=== PATIENT | male | born 1940 | race Caucasian/White ===

== ENCOUNTER 2020-02-12 12:30 | Emergency (ER) | payer OTHER, SELFPAY ==
[2020-02-12 12:54] VITALS: BP 178/78; PULSE 55; RESP 15; TEMP 36.9; O2SAT 96; BMI 31.5
--- NOTE | 2020-02-12 13:01 | DI.RAD.S_ITS ---
PROCEDURE: XR SHOULDER LT MIN 2V INDICATIONS: 6ft fall off ladder onto left arm TECHNIQUE: 2 views of the shoulder were acquired. COMPARISON: None. FINDINGS: Bones: Fracture of the distal clavicle is noted. Soft tissues: No suspicious soft tissue calcifications. IMPRESSION: Distal clavicle fracture. Dictated by: Adilia Funk MD, PhD on 02/12/2020 at 13:38 Approved by: Adilia Funk MD, PhD on 02/12/2020 at 13:39
[2020-02-12 16:12] VITALS: BP 146/71; PULSE 56; RESP 16; O2SAT 97
--- NOTE | 2020-02-12 16:21 | DI.RAD.S_ITS ---
PROCEDURE: XR CLAVICLE LT INDICATIONS: clavicle fx TECHNIQUE: 2 views of the clavicle were acquired. COMPARISON: [facility], CR, XR SHOULDER LT MIN 2V, 02/12/2020, 13:16. FINDINGS: Bones: There is a comminuted, moderately displaced fracture seen of the distal left clavicle. The distal left clavicle is high-riding. No additional fractures are seen. The visualized ribs are intact. No suspicious lytic or blastic lesions are seen. Age-appropriate bony degenerative changes are seen. Soft tissues: No suspicious soft tissue calcifications. IMPRESSION: Comminuted, moderately displaced distal clavicle fracture, with distal clavicle high-riding. Dictated by: Jeff Eng M.D. on 02/12/2020 at 16:05 Approved by: Jeff Eng M.D. on 02/12/2020 at 16:06
[2020-02-12] MEDS: HYDROCODONE/ACET 5/325 TABLET 1 TAB PO (17:29)
[2020-02-12 17:49] VITALS: BP 119/71; PULSE 63; RESP 14; O2SAT 99
--- NOTE | 2020-02-12 18:09 | ED.UPPEXIN ---
HPI - Extremity Injury (Upper) <SYLVIA Clay - Last Filed: 02/12/20 18:40> General Chief Complaint: Extremity Injury, Upper Stated Complaint: Fall today hurt right shoulder Time Seen by Provider: 02/12/20 16:08 Source: patient Mode of arrival: Ambulatory Limitations: no limitations History of Present Illness HPI narrative: The patient is a 79-year-old male nonsmoker presents with a chief complaint of left shoulder pain after a fall earlier today while cleaning the gutters. He was on a ladder, states he was approximately 6 ft high when the ladder collapsed, folded in any fell landing directly on his shoulder. He denies loss of consciousness. He denies any neck or back pain. He states he has an isolated shoulder injury and does not want any further follow-up. He is concerned about dislocation. He took acetaminophen prior to arrival. This occurred approximately 10:00 a.m.. Modified trauma is considered for this patient, but not activated as he complains of an isolated injury, is not taking blood thinners, declines any imaging other than his shoulder. Related Data Previous Rx's Medication Instructions Recorded hydrocodone-acetaminophen [[place]] 1 tab PO Q4-6H PRN #10 tab 02/12/20 Allergies Allergy/AdvReac Type Severity Reaction Status Date / Time No Known Drug Allergies Allergy Verified 02/12/20 12:54 Review of Systems <SYLVIA Clay - Last Filed: 02/12/20 18:40> Review of Systems Narrative: GENERAL: Denies chills, fatigue, malaise, fever, sweats. HEENT: Denies sinus pain, ear pain, sore throat, difficulty swallowing, dizziness. RESPIRATORY: Denies dyspnea, cough, wheezing, hemoptysis, sputum. CARDIOVASCULAR: Denies chest pain, palpitations, orthopnea, edema, GASTROINTESTINAL: Denies nausea, vomiting, abdominal pain, diarrhea, constipation, melena. : Denies dysuria, frequency, incontinence, hematuria, urinary retention. MUSCULOSKELETAL: See HPI SKIN: Denies rash, skin lesions, or other NEUROLOGIC: Denies weakness, headache, numbness, change in speech, confusion, seizures, incoordination. PSYCHIATRIC: No concerning psychosocial issues. 12 point review of systems is negative except for those stated above Patient History <SYLVIA Clay - Last Filed: 02/12/20 18:40> Social History Smoking Status: Unknown if ever smoked Smoking Status: Unknown if ever smoked alcohol intake frequency: holidays/special occasions only Substance Use Type: does not use Exam <Mariann FlorentinoSYLVIA lane - Last Filed: 02/12/20 18:40> Narrative Exam Narrative: GENERAL: This is a well-nourished, well-developed patient, in no acute distress. HEAD: Atraumatic. Normocephalic. No temporal or scalp tenderness. EYES: Pupils equal round and reactive. Extraocular motions intact. No scleral icterus. No injection or drainage. ENT: Nose without bleeding, purulent drainage or septal hematoma. Wearing a mask Airway patent. NECK: Trachea midline. No JVD or lymphadenopathy. Supple, nontender, no meningeal signs. CARDIOVASCULAR: Regular rate and rhythm RESPIRATORY: Clear to auscultation. Breath sounds equal bilaterally. No wheezes, rales, or rhonchi. No cough. No increased respiratory effort. No accessory muscle use GASTROINTESTINAL: Abdomen soft, non-tender, nondistended. No hepato-splenomegaly, or palpable masses. No guarding. Active bowel sounds all 4 quadrants. EXTREMITIES: Pain over palpation of left clavicle. Positive left radial pulse. 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 Cap refill less than 2 seconds all fingers left hand. BACK: Nontender without deformity or crepitance. No flank tenderness. No pain to CT or L-spine palpation. No palpable step-offs or deformities. NEURO: AOx3. Interactive. Age appropriate. Stable gait. No gross cranial nerve deficit. SKIN: No rash or erythema on visible Initial Vital Signs Initial Vital Signs: Vital Signs Temperature 98.5 F 02/12/20 12:54 Pulse Rate 55 L 02/12/20 12:54 Respiratory Rate 15 02/12/20 12:54 Blood Pressure 178/78 H 02/12/20 12:54 Pulse Oximetry 96 02/12/20 12:54 <Elvia Miranda DO - Last Filed: 02/13/20 07:24> Initial Vital Signs Initial Vital Signs: Vital Signs Temperature 98.5 F 02/12/20 12:54 Pulse Rate 55 L 02/12/20 12:54 Respiratory Rate 15 02/12/20 12:54 Blood Pressure 178/78 H 02/12/20 12:54 Pulse Oximetry 96 02/12/20 12:54 Procedures <SYLVIA Clay - Last Filed: 02/12/20 18:40> Orthopedic Splinting/Casting Injury #1: Side: right Upper Extremity Injury Location: shoulder Upper Extremity Immobilizer: sling/shoulder immobilizer Post splinting neuro exam: intact Post splinting vascular exam: intact Placed by: Nursing Scores <SYLVIA Clay - Last Filed: 02/12/20 18:40> GCS Monet coma scale eye opening: Spontaneous Monet coma scale verbal response: Orientated Dudley coma scale motor response: Obey commands Monet coma scale total score: 15 Nexus Score for C-Spine Focal Neurologic deficit present: No Midline spinal tenderness present: No Altered level of conciousness present: No Intoxication present: No Distracting Injury Present: No Nexus Criteria for C-spine: 0 Course <SYLVIA Clay - Last Filed: 02/12/20 18:40> Orders Ordered: Discontinued Medications Hydrocodone Bitart/Acetaminophen (Hydrocodone/Acet 5/325 Tablet) 1 tab PO NOW ONE Stop: 02/12/20 17:03 Last Admin: 02/12/20 17:29 Dose: 1 tab Documented by: KELY Vital Signs Vital signs: Vital Signs - 8 hr 02/12/20 12:54 02/12/20 16:12 02/12/20 17:49 Temperature 98.5 F Pulse Rate 55 L 56 L 63 Respiratory Rate 15 16 14 Blood Pressure 178/78 H 146/71 H 119/71 Pulse Oximetry 96 97 99 <Elvia Miranda DO - Last Filed: 02/13/20 07:24> Orders Ordered: Discontinued Medications Hydrocodone Bitart/Acetaminophen (Hydrocodone/Acet 5/325 Tablet) 1 tab PO NOW ONE Stop: 02/12/20 17:03 Last Admin: 02/12/20 17:29 Dose: 1 tab Documented by: KELY Vital Signs Vital signs: Vital Signs - 8 hr 02/12/20 12:54 02/12/20 16:12 02/12/20 17:49 Temperature 98.5 F Pulse Rate 55 L 56 L 63 Respiratory Rate 15 16 14 Blood Pressure 178/78 H 146/71 H 119/71 Pulse Oximetry 96 97 99 MDM - Extremity Injury (Upper) <SYLVIA Clay - Last Filed: 02/12/20 18:40> [facility] Narrative Medical decision making narrative: The patient is a 71-year-old male who presents with a chief complaint of right shoulder pain after falling off a ladder onto it. He denies any his head any neck or back pain. Denies any numbness or tingling or incontinence. He repeatedly declines any imaging other than his shoulder. He was found to have a clavicle fracture on shoulder x-ray, so focused clavicle films were taken per Dr Miranda. X-rays were viewed with Dr Miranda and the patient was placed in a sling. He is neurovascularly intact with no tenting of the skin. Encouraged follow-up with primary care provider and orthopedist. Discussed at length ice, return precautions of today in skin or decreased circulation. Patient repeatedly declined further imaging. [place] given for pain. Patient has no questions or concerns upon discharge and states understanding return precautions as well as follow-up care. Discharge Plan Departure Patient Disposition: Home Clinical Impression: Fracture of clavicle Qualifiers: Encounter type: initial encounter Clavicle location: lateral end Fracture type: closed Fracture alignment: displaced Laterality: right Qualified Code(s): S42.031A - Displaced fracture of lateral end of right clavicle, initial encounter for closed fracture Accidental fall from ladder Qualifiers: Encounter type: initial encounter Qualified Code(s): W11.XXXA - Fall on and from ladder, initial encounter Instructions: How to Use a Sling, DI for Clavicle Fracture-Adult Activity Restrictions/Additional Instructions: Thank you for trusting us with your care today As discussed, you have a fractured clavicle or collarbone. Please follow-up with primary care provider in [place]. They will likely want you to see an orthopedist and I have given you contact information to [facility] Please use ice, [id number] medications as needed and able. I have also given you a prescription of hydrocodone with acetaminophen. [facility] Be careful taking x-ray acetaminophen with this so that you do not take more than 3 g per day I have given you a prescription of a narcotic for pain. Be aware that this can be constipating and sedating. I encouraged taking with a stool softener, pushing fluids and fiber. Do not take and drive, operate heavy machinery, etc. Do not combine it with any other sedating substances such as alcohol. The combination of narcotics and alcohol and/or other sedatives can be lethal. Please come back to the emergency department for any acute concerns such as decreased circulation to your hand. You have declined further imaging in the emergency department today, so feel free to come back to the ER for any acute concerns Prescriptions: New hydrocodone-acetaminophen [[place]] 5-325 mg tablet 1 tab PO Q4-6H PRN (Reason: pain) Qty: 10 RF: 0 <Elvia Miranda DO - Last Filed: 02/13/20 07:24> Cosign ED Attending [place] Attestation: I was immediately available in the department for consultation. Documentation has been reviewed. I agree with assessment and plan.
== END 2020-02-12 17:51 | disposition home or self-care (01) ==
PROVIDERS: Emergency Provider Nurse Practitioner Family
DX: S42.031A Displaced fracture of lateral end of right clavicle, initial encounter for closed fracture (principal); W11.XXXA Fall on and from ladder, initial encounter
CPT/HCPCS: 73000; 73030; 99281; 99283

== ENCOUNTER → 2020-02-18 09:36 | Outpatient (CLI) | payer OTHER, SELFPAY ==
[2020-02-18 11:14] LABS: COVID19 -Nasal RAPID Negative (Negative)
== END ==
PROVIDERS: Visit Provider Student in an Organized Health Care Education/Training Program
DX: Z11.59 Encounter for screening for other viral diseases (principal)
CPT/HCPCS: 87635

== ENCOUNTER 2020-02-20 06:27 | Day surgery (SDC) | payer OTHER, SELFPAY ==
[2020-02-20] VITALS (11 sets, daily range): BP systolic 131–174; BP diastolic 75–92; PULSE 67–94; RESP 11–20; TEMP 35.8–36.2; O2SAT 87–97; BMI 33.3
--- NOTE | 2020-02-20 | DI.RAD.S_ITS ---
PROCEDURE: XR CLAVICLE LT INDICATIONS: Post op clavicle orif TECHNIQUE: 2 views of the clavicle were acquired. COMPARISON: [facility], CR, XR SHOULDER LT MIN 2V, 02/12/2020, 13:16. [facility], CR, XR CLAVICLE LT, 02/12/2020, 16:30. FINDINGS: Bones: On this postoperative study, plate and screw fixation is seen of the distal left clavicle. A suture button is seen across the cortical clavicular interface. There is improved anatomic alignment. Age-appropriate bony degenerative changes are seen. Soft tissues: Overlying soft tissue postoperative changes are seen. IMPRESSION: Normal postoperative examination. Dictated by: Jeff Eng M.D. on 02/20/2020 at 8:55 Approved by: Jeff Eng M.D. on 02/20/2020 at 8:56
[2020-02-20] MEDS: LACTATED RINGERS 1,000 ML 42 ML IV ×2 (07:05→10:01)
--- NOTE | 2020-02-20 07:08 | SUR.OPER ---
Beach chair on padded OR bed. Head on gel donut secured with tape over gauze. Non-operative arm secured <90 degrees abduction on padded arm board. Pillow under knees. Safety belt at thigh. Cloth tape over blanket over lower legs.
--- NOTE | 2020-02-20 07:27 | PM.PREOP ---
Pre-operative Note COVID-19 COVID-19 status: Negative Result date/Date tested (Pos, Neg/Pending): 02/18/20 Interval Note History & Physical reviewed/Exam performed by Physician: Yes Changes to H&P: No
[2020-02-20] MEDS: MIDAZOLAM 2 MG/2 ML VIAL IV (07:47)
[2020-02-20] MEDS: CEFAZOLIN 2 GM/100 ML FROZ.PIGGY IV (07:55)
--- NOTE | 2020-02-20 08:02 | SUR.PREOP ---
Block start time [0747] . Monitoring initiated and maintained throughout procedure. Oxygen and medications given per anesthesiologist instructions. Patient remained stable throughout procedure, no adverse reactions noted. Block end time [0754]. pt remained stable throughout procedure. pt alert and talking to RN at bedside. Pt transferred into the OR after completion of block in stable condition, vss.
[2020-02-20] MEDS: BUPIVACAINE 0.25% W/ EPI (PF) 10 ML VIAL 20 ML INJ (08:36)
[2020-02-20] MEDS: ACETAMINOPHEN IV 1,000 MG/100 ML VIAL 400 MG IV (08:38)
--- NOTE | 2020-02-20 09:37 | PM.OP.1 ---
Operative Date/Time/Diagnoses Date of procedure: 02/20/20 Time of procedure: 09:37 Pre-op diagnosis: Left distal clavicle fracture with disruption of the coracoclavicular ligaments Post-op diagnosis: same Procedure & Clinicians Procedure: 1. Open reduction internal fixation of left distal clavicle fracture (72640) 2. Repair of the coracoclavicular ligaments (57001) Same procedure as scheduled: Yes Indications: The patient is a 79-year-old gentleman who was injured when the ladder he was standing on gave way and he fell. He sustained a left distal clavicle fracture with disruption of the coracoclavicular ligaments. He has taken to the operating room for open reduction internal fixation and repair of the ligaments after discussion the risks benefits and alternatives. Risks discussed included but were not limited to: Failure to improve, stiffness, infection, nerve damage, potential need for later removal of the plate, deep venous thrombosis, pulmonary embolism, stroke, myocardial infarction, permanent paralysis and . Surgeon: Rome Shields Haulpak Driver: Rosita Hernández Click Yes if Unassisted: No Anesthesia Type: General, Peripheral nerve block and Local Operative Notes Findings: Oblique distal clavicle fracture with complete rupture of the coracoclavicular ligaments. Closure Type: primary Specimen(s): none sent Prosthetic devices, grafts, tissues, transplants, or devices: Implants used in this procedure were manufactured by the [employer]. The included a 5 hole left distal clavicle plate with 1 nonlocking and 3 locking 2.7 mm screws in the distal fragment and 3 3.5 mm nonlocking screws in the proximal fragment. A syndesmosis ?Tight Rope? was used to repair the coracoclavicular ligaments. Applied: implant(s) Estimated Blood Loss (mL): 100 Blood products transfused: none Procedure in detail: The patient was seen in the preoperative area where he identified the left shoulder as the operative site and this was marked with my initials. He received preoperative antibiotics and was taken to the operating room and placed on the operating room table in the supine position after undergoing an interscalene block for postoperative pain control. The patient underwent a general anesthetic and then was repositioned in the ?beach chair? position. A towel roll was placed medial to the scapula to protract it. The left arm was prepared from the fingertips to the neck with ChloraPrep in the usual fashion. The arm was draped through sterile drapes. The arm was draped free. The distal clavicle was approached through an approximately 10 cm incision on the anterior side of the clavicle. Subcutaneous flaps were raised. The fascia muscular sleeve was elevated off the clavicle and the deltoid was taken off anteriorly to allow access to the coracoid. The coracoid was palpated and the base of the coracoid defined by blunt dissection with a hemostat beneath it. A preliminary reduction was obtained and held with a 0.062 inch K-wire. The appropriate plate was selected and applied to the top of the clavicle. A distal nonlocking screw was placed and 1 proximal screw was placed. At this point the ?Tight Rope? device was placed through the plate. The ?dog bone? fixation device was deployed beneath the neck of the clavicle and the sutures on this tightened which reapproximated the clavicle to the appropriate relationship to the coracoid. The sutures were then tied to finalize fixation. An additional 3 locking screws were placed in the distal fragment to finalize fixation there. An additional 2 nonlocking screws were placed medially. I palpated beneath the distal clavicle with a [place] elevator to confirm that the screws had not penetrated too deeply. The wound was then copiously irrigated. The fascia muscular sleeve was then reapproximated using interrupted 0 Vicryl. The subcutaneous layer was closed with 3-0 Vicryl. The subcutaneous flaps were injected with a total of 10 mL of 0.25% Marcaine with epinephrine for postoperative pain control. The skin was closed with a running 4-0 Monocryl and Steri-Strips. An Aquacel Ag dressing was then applied. The patient was allowed to awaken from anesthesia and was taken to the recovery room in good condition having tolerated the procedure well. Complications: none Post-operative Condition: stable Disposition: PACU Plan for aftercare: The patient will be discharged home today. He will be allowed to use his hand below shoulder level in front of his body lifting no more than 1 lb for 1 month. He will then be allowed unrestricted motion of his arm in physical therapy. Healing of the fracture will be followed on radiographs. He will be discharged with a prescription for oxycodone for pain control.
--- NOTE | 2020-02-20 11:01 | SUR.PHASEII ---
All instructions and discharge orders reviewed with and patient. RX provided for oxycodone and instructed patient that Dr Shields wanted patient to take Baby ASA for two weeks. Patient denies pain at this time and is in no respiratory distress. All belongings returned to patient.
== END 2020-02-20 10:58 | disposition home or self-care (01) ==
PROVIDERS: PCP Internal Medicine; Referring Provider Orthopaedic Surgery; Visit Provider Orthopaedic Surgery
PROC: 0PSB04Z Reposition Left Clavicle with Internal Fixation Device, Open Approach (ICD-10-PCS; CPT 23515; principal; 2020-02-20 07:45)
DX: S42.032A Displaced fracture of lateral end of left clavicle, initial encounter for closed fracture (principal); S43.82XA Sprain of other specified parts of left shoulder girdle, initial encounter; W11.XXXA Fall on and from ladder, initial encounter; I10 Essential (primary) hypertension; G47.33 Obstructive sleep apnea (adult) (pediatric)
CPT/HCPCS: 23515; 23550; 64450; 73000; J0131; J0690; J1100; J2250; J2405; J2704; J3010

== ENCOUNTER → 2022-04-23 10:54 | Outpatient (CLI) | payer OTHER, SELFPAY | PROVIDERS: PCP Internal Medicine; Visit Provider Student in an Organized Health Care Education/Training Program | DX: R30.0 Dysuria (principal) | CPT/HCPCS: 87077; 87086; 87186 ==

== ENCOUNTER 2022-05-01 11:27 | Emergency (ER) | payer OTHER, SELFPAY ==
[2022-05-01 11:32] VITALS: BP 136/65; PULSE 57; RESP 18; TEMP 36.3; O2SAT 96; BMI 34.8
--- NOTE | 2022-05-01 11:36 | DI.US.S_ITS ---
PROCEDURE: US SCROTUM INDICATIONS: SWELLING AND PAIN RIGHT TESTICLE X 6 DAYS. RECENT UTI. TECHNIQUE: Real-time scanning was performed of the scrotum and testicles, with image documentation. Color and pulse Doppler interrogation was performed of both testicles. COMPARISON: None. FINDINGS: Right: Testicle is normal in size at 2.2 x 2.1 x 2.3 cm, and overall homogenous in echotexture. There is a small bilobed, anechoic cyst in testicle measuring 0.6 x 0.4 x 0.5 cm. Epididymis is enlarged and demonstrates heterogeneous echotexture. A 1.5 x 1.7 x 1.0 cm mass is present in the epididymal tail, which demonstrates central lucency and peripheral increased vascularity, suspicious for an abscess. There is a large hydrocele with internal echo. No varicoceles. Overlying scrotal skin is thickened. Left: Testicle is normal in size at 3.5 x 1.7 x 1.6 cm, and homogeneous in echotexture. Epididymis is normal in overall size and morphology. No hydrocele or varicoceles. The scrotal skin is thickened. Doppler: Color and pulse Doppler demonstrate increased vascularity to the right testes and epididymis consistent with epididymitis/orchitis. IMPRESSION: 1. The right epididymis is enlarged and demonstrates increased vascularity consistent with epididymitis. There is a 1.5 x 1.7 x 1.0 cm heterogeneous mass with peripherally increased vascularity and central lucency, compatible with phlegmon or early abscess. A neoplastic mass is felt less likely but not entirely excluded. Recommend short interval imaging follow-up after adequate treatment. 2. Increased vascularity in the right testes, compatible with orchitis. 3. Large right hydrocele with internal vascularity suggesting pyocele. 4. Scrotal wall thickening suggesting cellulitis. Recommend correlation with findings on physical exam. 5. A 0.6 x 0.4 x 0. The result was discussed with Dr. Cabezas. Dictated by: Isaak Hernandez M.D. on 05/01/2022 at 14:16 Transcribed by: FATOUMATA on 05/01/2022 at 14:28 Approved by: Isaak Hernandez M.D. on 05/02/2022 at 9:30
[2022-05-01 14:05] VITALS: BP 136/62; PULSE 55; RESP 20; O2SAT 96
--- NOTE | 2022-05-01 14:55 | ED_ITS ---
HPI - General Adult General Chief complaint: Urogenital-Male Stated complaint: enlarged RT testicle great deal of pain T-6 Time Seen by Provider: 05/01/22 12:55 Source: patient Mode of arrival: Ambulatory Limitations: no limitations History of Present Illness HPI narrative: 81-year-old male who 10 days ago was seen at the walk-in clinic for urinary tract infection like symptoms. Was started on Bactrim. Was on this medication for 7 days. He finished the prescription yesterday. At the end of last week he started noticing pain and swelling to his right testicle. It has worsened to the point today where he has quite a bit of discomfort and swelling and redness. He states that the urinary tract infection symptoms have resolved. He denies any fevers. Is urinating without issue. No constipation or diarrhea. He denies any trauma. Related Data Home Medications Medication Instructions Recorded Confirmed acetaminophen 500 mg tablet 500 mg PO Q6H PRN Pain (Scale 02/20/20 04/23/22 Score 1-3) allopurinol 300 mg tablet 300 mg PO DAILY 02/20/20 04/23/22 atenolol 50 mg tablet 50 mg PO DAILY 02/20/20 04/23/22 glucosamine sulfate 500 mg tablet 500 mg PO DAILY 02/20/20 04/23/22 (Glucosamine) hydrochlorothiazide 12.5 mg capsule 12.5 mg PO DAILY 02/20/20 04/23/22 lisinopril 10 mg tablet 10 mg PO DAILY 02/20/20 04/23/22 melatonin 3 mg capsule 3 mg PO BEDTIME PRN Sleep 02/20/20 04/23/22 meloxicam 15 mg tablet 15 mg PO DAILY PRN Pain (Scale 02/20/20 04/23/22 Score 1-3) multivitamin-ferrous 1 tab PO DAILY 02/20/20 04/23/22 fumarate-folic acid 18 mg-400 mcg tablet (Multi Complete with Iron) simvastatin 40 mg tablet 40 mg PO DAILY 02/20/20 04/23/22 Previous Rx's Medication Instructions Recorded oxycodone 5 mg tablet 5 mg PO Q4HR PRN Pain, Moderate 02/20/20 (4-6) #40 tabs sulfamethoxazole 400 1 tab PO BID 10 days #20 tabs 05/01/22 mg-trimethoprim 80 mg tablet (Bactrim) tamsulosin 0.4 mg capsule (Flomax) 0.4 mg PO DAILY #30 caps 05/01/22 Allergies Allergy/AdvReac Type Severity Reaction Status Date / Time ciprofloxacin AdvReac Dizziness Verified 05/01/22 11:38 Review of Systems Constitutional Constitutional: Reports system reviewed and no additional complaints, except as documented Genitourinary Genitourinary: Reports system reviewed and no additional complaints, except as documented Integumentary/Breasts Skin/Breast: Reports system reviewed and no additional complaints, except as documented Neurologic Neurologic: Reports system reviewed and no additional complaints, except as documented Hematologic/Lymphatic On Anticoagulants: No Patient History Social History household members: spouse Smoking Status: Never smoker alcohol intake: current Smoking Status: Never smoker alcohol intake frequency: holidays/special occasions only Substance Use Type: does not use Exam Initial Vital Signs Initial Vital Signs: Vital Signs Temperature 97.3 F L 05/01/22 11:32 Pulse Rate 57 L 05/01/22 11:32 Respiratory Rate 18 05/01/22 11:32 Blood Pressure 136/65 05/01/22 11:32 Pulse Oximetry 96 05/01/22 11:32 Oxygen Delivery Method 05/01/22 11:32 Const General: cooperative and comfortable HENMT Head: normal to inspection and normocephalic GI Inspection: normal to inspection Palpation: soft, No firm and No tender Other: Patient is circumcised. Has swelling and discomfort to the right hemiscrotum. Redness to the scrotum as well. Tenderness along the epididymis/vas deferens. Skin Other: Redness and swelling to the right hemiscrotum. Neuro General: patient alert, patient awake and moves all extremities Course Orders Ordered: ED Orders 05/01/22 11:36 US scrotum Stat Discontinued Medications Trimethoprim/Sulfamethoxazole (Trimeth/Sulfa 160/800 (Ds) Tablet) 1 tab PO NOW ONE Stop: 05/01/22 15:32 Last Admin: 05/01/22 15:47 Dose: 1 tab Documented By: EDI Vital Signs Vital signs: Vital Signs - 8 hr 05/01/22 11:32 05/01/22 14:05 05/01/22 15:49 Temperature 97.3 F L 99 F Pulse Rate 57 L 55 L 60 Respiratory Rate 18 20 20 Blood Pressure 136/65 136/62 160/60 H Pulse Oximetry 96 96 Oxygen Delivery Method Room Air Room Air Medical Decision Making Lab Data Lab results reviewed: Yes I reviewed the patient's lab results. Labs: Urine Dip Bedside Urine Glucose Negative Bedside Urine Bilirubin - Negative Bedside Urine Ketone - Negative Urine Specific [place] 1.025 Bedside Urine Occult Blood - Negative Bedside Urine pH 6.0 Bedside Urine Protein - Negative Bedside Urine Urobilinogen - Negative Bedside Urine Nitrite - Negative Bedside Urine Leukocytes - Negative Esterase Point of care testing: Urine Dip Bedside Urine Glucose Negative Bedside Urine Bilirubin - Negative Bedside Urine Ketone - Negative Urine Specific [place] 1.025 Bedside Urine Occult Blood - Negative Bedside Urine pH 6.0 Bedside Urine Protein - Negative Bedside Urine Urobilinogen - Negative Bedside Urine Nitrite - Negative Bedside Urine Leukocytes - Negative Esterase Imaging Data Scrotal ultrasound: Radiologist's Impression: [address] [address] Ultrasound Report Draft Patient: Mateusz Rose MR#: [id number] : 1940 Acct:[id number] Age/Sex: 81 / M Date of Service: 05/01/22 Loc: ED Accession Number: [id number] ?? Procedure: US scrotum Ordering Provider: Isaiah Cabezas D.O. Caution: Report not yet finalized and possibly incomplete! ? ? PROCEDURE:? US SCROTUM ? INDICATIONS:? SWELLING AND PAIN RIGHT TESTICLE X 6 DAYS. RECENT UTI. ? TECHNIQUE:? Real-time scanning was performed of the scrotum and testicles, with image documentation.? Color and pulse Doppler interrogation was performed of both testicles.? ? COMPARISON:? None. ? FINDINGS:? ? Right:? Testicle is normal in size at 2.2 x 2.1 x 2.3 cm, and overall homogenous in echotexture.? There is a small bilobed, anechoic cyst in testicle measuring 0.6 x 0.4 x 0.5 cm.? Epididymis is enlarged and demonstrates heterogeneous echotexture.? A 1.5 x 1.7 x 1.0 cm mass is present in the epididymal tail, which demonstrates central lucency and peripheral increased vascularity, suspicious for an abscess.? There is a large h ydrocele with internal echo.? No varicoceles.? Overlying scrotal skin is thickened.? ? Left:? Testicle is normal in size at 3.5 x 1.7 x 1.6 cm, and homogeneous in echotexture.? Epididymis is normal in overall size and morphology.? No hydrocele or varicoceles.? The scrotal skin is thickened.? ? Doppler:? Color and pulse Doppler demonstrate increased vascularity to the right testes and epididymis consistent with epididymitis/orchitis.? ? IMPRESSION:? ? 1. The right epididymis is enlarged and demonstrates increased vascularity consistent with epididymitis.? There is a 1.5 x 1.7 x 1.0 cm heterogeneous mass with peripherally increased vascularity and central lucency, compatible with phlegmon or early abscess.? A neoplastic mass is felt less likely but not entirely excluded.? Recommend short interval imaging follow-up after adequate treatment.? 2. Increased vascularity in the right testes, compatible with orchitis. 3. Large right hydrocele with internal vascularity suggesting pyocele. 4. Scrotal wall thickening suggesting cellulitis.? Recommend correlation with findings on physical exam. 5.? A 0.6 x 0.4 x 0. ? The result was discussed with Dr. Cabezas. ? Dictated by: Isaak Hernandez M.D. on 05/01/2022 at 14:16 ? Transcribed by: FATOUMATA on 05/01/2022 at 14:28? ?? MDM Narrative Medical decision making narrative: Patient's UTI like symptoms have resolved. He is completed the course of antibiotics. Results of the ultrasound were observed and discussed with Dr. Smith who is on-call with Urology. Who recommended a postvoid residual which in this patient was less than 50 cc. We did discuss the concerns for potential abscess. Review the patient's medical records just so a pansensitive E coli from his prior urinary tract infection. The infection today in the scrotum is most likely this E coli. Dr. Smith recommended extending the Bactrim for the next 10 days. He also recommended placing the patient on Flomax. Information was sent to Dr. Smith for his office to follow-up. The patient was given very strict return precautions and was told to return to the emergency department if his symptoms continue to worsen. He expressed understanding and agreement. Discharge Plan Departure Patient Disposition: Home Clinical Impression: Epididymitis, Cellulitis of scrotum Instructions: DI for Epididymitis Activity Restrictions/Additional Instructions: I recommend that tomorrow you contact the urologist at the number provided below. A prescription for antibiotics was sent to the pharmacy of your choice. Please start taking it as directed. Return to the emergency department for any new or worsening symptoms. Prescriptions: New sulfamethoxazole-trimethoprim [Bactrim] 400-80 mg tablet 1 tab PO BID 10 Days Qty: 20 0RF tamsulosin [Flomax] 0.4 mg capsule 0.4 mg PO DAILY Qty: 30 0RF No Action meloxicam 15 mg Tablet 15 mg PO DAILY PRN (Reason: Pain (Scale Score 1-3)) glucosamine sulfate [Glucosamine] 500 mg Tablet 500 mg PO DAILY acetaminophen 500 mg Tablet 500 mg PO Q6H PRN (Reason: Pain (Scale Score 1-3)) simvastatin 40 mg Tablet 40 mg PO DAILY lisinopril 10 mg Tablet 10 mg PO DAILY hydrochlorothiazide 12.5 mg Capsule 12.5 mg PO DAILY allopurinol 300 mg Tablet 300 mg PO DAILY atenolol 50 mg Tablet 50 mg PO DAILY Multi Complete with Iron 18-400 mg-mcg Tablet 1 tab PO DAILY melatonin 3 mg Capsule 3 mg PO BEDTIME PRN (Reason: Sleep) oxycodone 5 mg Tablet 5 mg PO Q4HR PRN (Reason: Pain, Moderate (4-6)) Qty: 40 0RF Referrals: Gina Greenberg MD [Primary Care Provider] - Miri Smith MD [Physician] - Stand Alone Forms: Patient Portal/API
[2022-05-01] MEDS: TRIMETH/SULFA 160/800 (DS) TABLET 1 TAB PO (15:47)
[2022-05-01 15:49] VITALS: BP 160/60; PULSE 60; RESP 20; TEMP 37.2
== END 2022-05-01 15:51 | disposition home or self-care (01) ==
PROVIDERS: Emergency Provider Emergency Medicine; PCP Internal Medicine
DX: N45.1 Epididymitis (principal)
CPT/HCPCS: 51798; 76870; 81003; 93975; 99283

== ENCOUNTER → 2022-05-25 14:57 | Outpatient (CLI) | payer OTHER, SELFPAY ==
--- NOTE | 2022-05-25 15:01 | DI.US.S_ITS ---
PROCEDURE: US SCROTUM INDICATIONS: RIGHT SCROTUM EPIDIDYMITIS TECHNIQUE: Real-time scanning was performed of the scrotum and testicles, with image documentation. Color and pulse Doppler interrogation was performed of both testicles. COMPARISON: [facility], , US SCROTUM, 05/01/2022, 12:02. FINDINGS: Right: Testicle is normal in size at 2.4 x 2.3 x 2.1 cm, and homogenous in echotexture. Anechoic septated cyst in the right testicle measuring 0.4 cm, unchanged. The hypoechoic focus in the right epididymis is resolved. Epididymis is heterogeneous. Epididymis is thickened with increased vascularity. Moderate hydrocele with debris. No varicoceles. Overlying scrotal skin is normal in thickness. Left: Testicle is normal in size at 2.8 x 2.2 x 1.6 cm, and homogeneous in echotexture. Epididymis is normal in overall size and morphology. Epididymis is heterogeneous. No hydrocele or varicoceles. Overlying scrotal skin is normal in thickness. Doppler: Blood flow in the testicles is symmetric. There is increased blood flow in the right epididymis. IMPRESSION: 1. Improving right epididymitis. Resolved abscess. 2. Moderate right hydrocele with debris. Dictated by: Jorge Rene M.D. on 05/25/2022 at 19:36 Approved by: Jorge Rene M.D. on 05/25/2022 at 19:41
== END ==
PROVIDERS: PCP Internal Medicine; Referring Provider Nurse Practitioner Primary Care; Visit Provider Nurse Practitioner Primary Care
DX: N45.1 Epididymitis (principal); N39.0 Urinary tract infection, site not specified; N43.3 Hydrocele, unspecified
CPT/HCPCS: 76870

== ENCOUNTER → 2022-11-19 11:24 | Outpatient (CLI) | payer OTHER, SELFPAY | PROVIDERS: PCP Internal Medicine; Visit Provider Nurse Practitioner Family | DX: R10.9 Unspecified abdominal pain (principal) | CPT/HCPCS: 87086 ==

== ENCOUNTER → 2022-11-19 11:36 | Outpatient (CLI) | payer OTHER, SELFPAY ==
--- NOTE | 2022-11-19 11:38 | DI.RAD.S_ITS ---
PROCEDURE: XR CHEST 2V INDICATIONS: Lung pain TECHNIQUE: 2 views of the chest were acquired. COMPARISON: None. FINDINGS: Surgical changes and devices: Left clavicle and left shoulder postoperative change is seen. Lungs and pleura: An incomplete inspiratory result is noted, causing a crowded appearance to the lung markings. No focal infiltrates are seen. No pneumothorax or significant pleural effusions are seen. Mild generalized interstitial prominence can be seen. Mediastinum: Mediastinal contours are normal. Heart size is normal. Bones and chest wall: No suspicious bony abnormalities. Age-appropriate bony degenerative changes are seen. Soft tissues appear unremarkable. IMPRESSION: Low lung volumes with mild generalized interstitial prominence. Postoperative and degenerative changes are seen. Dictated by: Jeff Eng M.D. on 11/19/2022 at 18:11 Approved by: Jeff Eng M.D. on 11/19/2022 at 18:11
== END ==
PROVIDERS: PCP Internal Medicine; Referring Provider Nurse Practitioner Family; Visit Provider Nurse Practitioner Family
DX: R07.81 Pleurodynia (principal); R10.9 Unspecified abdominal pain
CPT/HCPCS: 71046; 87086